=== PATIENT | female | born 1935 | race Two or more races ===

== ENCOUNTER 2022-10-13 01:22 | Inpatient (IN) | payer MEDICARE, OTHER ==
[~2022-10-13] VITALS: Ht 167.6 cm; Wt 60.3 kg
[2022-10-13] MEDS ORDERED: VANCOMYCIN 1 GM in IV D5W 250 ML IV ONE (01:30)
[2022-10-13] MEDS ORDERED: CEFEPIME 1 GM in IV D5W 50 ML IV ONE (01:30)
--- NOTE | 2022-10-13 01:55 | NUR ---
[id number], from [facility] c/o AMS sob 89%on 2lpm via NC is Baseline, upon triage pt on NRB 96%. Pt A/ox1. Connected Pt to Pox and monitor. Safety Measures in place
--- NOTE | 2022-10-13 01:56 | NUR ---
16FR F/C INSERTED; URINE COLLECTED AND SENT TO LAB
--- NOTE | 2022-10-13 01:56 | NUR ---
LFA #20G S/L BLOOD COLLECTED AND SENT TO LAB
--- NOTE | 2022-10-13 01:56 | NUR ---
COVID ANTIGEN SWAB COLLECTED AND SENT TO LAB
[2022-10-13] MEDS ORDERED: CEFEPIME 1 GM VIAL ONE (01:58)
[2022-10-13] MEDS ORDERED: VANCOMYCIN 1 GM VIAL ONE (01:58)
[2022-10-13 02:08] LABS: BASOPHILS % (AUTO) 0.3 % (0.0-2.0); EOSINOPHILS % (AUTO) 0.8 % (0.0-6.0); HEMATOCRIT 29 % (33-45); HEMOGLOBIN 9.2 g/dL (11.5-14.8); LYMPHOCYTES # (AUTO) 1.6 K/uL (0.8-4.8); LYMPHOCYTES % (AUTO) 16.1 % (20.0-44.0); MEAN CORPUSCULAR HGB CONC 31 g/dl (31.0-36.0); MEAN CORPUSCULAR VOLUME 98 fL (82-100); MONOCYTES # (AUTO) 0.7 K/uL (0.1-1.30); MONOCYTES % (AUTO) 7.3 % (2.0-12.0); NEUTROPHILS # (AUTO) 7.6 K/uL (1.8-8.9); NEUTROPHILS % (AUTO) 75.5 % (43.0-81.0); PLATELET COUNT (AUTO) 526 K/uL (150-450); RED BLOOD CELL COUNT(AUTO) 3.01 MIL/uL (4.0-5.2); WHITE BLOOD COUNT (AUTO) 10.1 K/uL (4.3-11.0)
[2022-10-13 02:32] LABS: CALCIUM, SERUM 8.2 mg/dL (8.5-10.1); CARBON DIOXIDE 23 mmol/L (21-32); CHLORIDE 110 mmol/L (98-107); CREATININE 0.9 mg/dL (0.6-1.3); GLUCOSE 122 mg/dL (74-106); POTASSIUM 4.4 mmol/L (3.5-5.1); SODIUM SERUM 143 mmol/L (136-145); UREA NITROGEN, BLOOD 27 mg/dL (7-18)
--- NOTE | 2022-10-13 02:32 | NUR ---
TANK WELDER AT PT'S BEDSIDE
[2022-10-13 02:37] LABS: ALANINE AMINOTRANSFERASE 17 U/L (12-78); ALBUMIN 2.2 g/dL (3.4-5.0); ALKALINE PHOSPHATASE 70 U/L (46-116); ASPARTATE AMINOTRANSFERASE 29 U/L (15-37); BILIRUBIN,DIRECT 0.1 mg/dL (0.0-0.2); BILIRUBIN,TOTAL 0.5 mg/dL (0.2-1.0); TOTAL PROTEIN, SERUM 5.7 g/dL (6.4-8.2)
[2022-10-13 02:37] LABS: BILIRUBIN,URINE NEGATIVE (NEGATIVE); COLOR,URINE YELLOW (YELLOW); LEUKOCYTE ESTERASE ,URINE NEGATIVE (NEGATIVE); NITRITE, URINE NEGATIVE (NEGATIVE); PH,URINE 5.5 (5.0-8.0); PROTEIN,URINE NEGATIVE (NEGATIVE); UGLUCOSE NEGATIVE (NEGATIVE); UROBILINOGEN,URINE 0.2 EU/dL (0.2)
--- NOTE | 2022-10-13 02:57 | NUR ---
TROPONIN 62; DR HUY JON AWARE
[2022-10-13] MEDS ORDERED: ACETAMINOPHEN 325 MG TABLET PO PRN (03:30)
[2022-10-13] MEDS ORDERED: CEFEPIME 1 GM in IV D5W 50 ML IV SCH (03:30)
[2022-10-13] MEDS ORDERED: Z GUARD REMEDY 4 OZ OINT TP PRN (03:30)
[2022-10-13] MEDS ORDERED: ZOLPIDEM TARTRATE 5 MG TABLET PO PRN (03:30)
[2022-10-13] MEDS ORDERED: MAG HYDROX/AL HYDROX/SIMETH 30 ML UDC PO PRN (03:30)
[2022-10-13] MEDS ORDERED: ONDANSETRON HCL/PF 4 MG/2 ML VIAL IVP PRN (03:30)
[2022-10-13] MEDS ORDERED: MAGNESIUM HYDROXIDE 30 ML UDC PO PRN (03:30)
--- NOTE | 2022-10-13 04:00 | NUR ---
room 112-1
[2022-10-13] MEDS ORDERED: IPRA4AER INH (04:20)
[2022-10-13] MEDS ORDERED: ERGO500093 PO (04:20)
[2022-10-13] MEDS ORDERED: CARV3.122 PO (04:20)
[2022-10-13] MEDS ORDERED: IPRA3AMP23 NEB (04:20)
[2022-10-13] MEDS ORDERED: LEVO100T9 MT (04:20)
[2022-10-13] MEDS ORDERED: ATOR20TA PO (04:20)
--- NOTE | 2022-10-13 04:21 | NUR ---
REPORT GIVEN TO SAI DOUGLASS RN FOR THUAN
--- NOTE | 2022-10-13 04:35 | NUR ---
RN NOTES NOTIFIED CHAD CRAWFORD REGARDING LATEST TROPONIN-69, NO NEW ORDER.
--- NOTE | 2022-10-13 04:36 | NUR ---
PT TRANSFERRED TO [facility] VIA ACLS PROTOCOL. VSS. PT TOLERATED TRANSFER WELL
--- NOTE | 2022-10-13 04:40 | NUR ---
ORIENTATION AND MOBILITY INSTRUCTOR NOTES ADMITTED A 86 Y/O FEMALE [facility], WITH DX OF ACUTE RESPIRATORY FAILURE, HX OF AFIB, HTN,HLD, DM, HEMIPLEGIA, DYSPHAGIA, CVA, RIGHT SIDED DEFICIT. ON NASAL CANULA @ 2LPM SATING AT 94%, RESPIRATORY EVEN AND UNLABORED, AFEBRILE. V/S TAKEN AND RECORDED. WITH LEFT FOREARM #20 PERIPHERAL LINE, FLUSHED WITH NS. NO S/S OF INFILTRATION NOTED. BODY ASSESSMENT DONE, PLACED PHOTO ON PATIENT CHART. ALL SAFETY PRECAUTION PROVIDED. BED IN LOWEST POSITION, LOCKED. CALL LIGHT WITH REACH. CONTINUE TO MONITOR.
[2022-10-13 05:03] VITALS: BP 133/70
--- NOTE | 2022-10-13 07:30 | NUR ---
CRYPTOGRAPHY TEACHER OPENING NOTES RECEIVED PATIENT ON BED AWAKE AND A/O X1. ON O2 AT 2LPM VIA NASAL CANNULA TOLERATING WELL. NO SOB NOTED. ON TELE MONITOR CURRENTLY READING SINUS RHYTHM WITH PACs AT 77BPM. WITH ROGERS CATHETER IN PLACED DRAINING BENNETT COLORED URINE. WITH IV ACCESS AT THE LEFT FOREARM G20 SALINE LOCKED PATENT AND INTACT. SAFETY MEASURES IN PLACED. CALL LIGHT WITHIN REACH. BED ON LOWEST LOCKED POSITION, SIDE RAILS UP X2. WILL CONTINUE TO MONITOR.
[2022-10-13 08:00] VITALS: BP 153/56
[2022-10-13] MEDS: LEVOTHYROXINE SODIUM 100 MCG TABLET PO SCH (09:00)
[2022-10-13] MEDS: CARVEDILOL 3.125 MG TABLET PO SCH ×2 (09:00→16:48)
[2022-10-13 09:45] LABS: FERRITIN 95 ng/mL (8-388)
[2022-10-13 09:49] LABS: IRON, SERUM 24 ug/dl (50-175); TOTAL IRON BINDING CAPACITY 193 ug/dl (250-450)
[2022-10-13 12:00] VITALS: BP 149/53
[2022-10-13] MEDS: CEFEPIME 2 GM in IV D5W 100 ML IV SCH (12:37)
[2022-10-13] MEDS: VANCOMYCIN 500 MG in IV D5W 100ml IV SCH (15:22)
[2022-10-13 16:00] VITALS: BP 146/46
--- NOTE | 2022-10-13 18:16 | NUR ---
PICKER TENDER HELPER CLOSING NOTES PATIENT ON BED RESTING AND A/O X1-2. ON O2 AT 2LPM VIA NASAL CANNULA TOLERATING WELL. NO SOB NOTED. ON TELE MONITOR CURRENTLY READING SINUS RHYTHM WITH PACs AT 85BPM. WITH ROGERS CATHETER IN PLACED DRAINING BENNETT COLORED URINE. WITH IV ACCESS AT THE LEFT FOREARM G20 SALINE LOCKED PATENT AND INTACT. DUE MEDS GIVEN. S/P US GUIDED RIGHT THORACENTESIS WITH 2,050ML REDDISH FLUID OUTPUT. NO BLEEDING NOTED. SAFETY MEASURES IN PLACED. CALL LIGHT WITHIN REACH. BED ON LOWEST LOCKED POSITION, SIDE RAILS UP X2. WILL ENDORSE TO NEXT SHIFT FOR THUAN.
--- NOTE | 2022-10-13 19:30 | NUR ---
MANAGER OF CONSTRUCTION OPENING NOTE PATIENT SLEEPING IN BED, EASILY AWAKENED, PT A/O X 1. PT STABLE ON RA, NO S/S OF DISTRESS OR SOB NOTED, BREATHING EVEN AND UNLABORED. PATIENT ON TELE MONITOR READING CONTROLLED A. FIB, HR: 94. IV ACCESS ON LFA #20G INTACT AND SALINE LOCKED. ROGERS CATH IN PLACE AND DRAINING YELLOW URINE. SAFETY MEASURES IN PLACE: CALL LIGHT WITHIN REACH, SIDE RAILS UP X 3, BED LOCKED IN LOWEST POSITION, HOB ELEVATED, BED ALARM ON. WILL CONTINUE TO MONITOR PATIENT
[2022-10-13 20:00] VITALS: BP 125/44
[2022-10-14] VITALS: BP 129/63
[2022-10-14] MEDS: CEFEPIME 2 GM in IV D5W 100 ML IV SCH ×2 (01:15→12:43)
[2022-10-14] MEDS: VANCOMYCIN 500 MG in IV D5W 100ml IV SCH ×2 (02:13→17:20)
[2022-10-14 04:00] VITALS: BP 112/71
[2022-10-14 07:00] LABS: BASOPHILS % (AUTO) 0.2 % (0.0-2.0); EOSINOPHILS % (AUTO) 0.4 % (0.0-6.0); HEMATOCRIT 28 % (33-45); HEMOGLOBIN 8.6 g/dL (11.5-14.8); LYMPHOCYTES # (AUTO) 1.6 K/uL (0.8-4.8); LYMPHOCYTES % (AUTO) 18.1 % (20.0-44.0); MEAN CORPUSCULAR HGB CONC 31 g/dl (31.0-36.0); MEAN CORPUSCULAR VOLUME 99 fL (82-100); MONOCYTES # (AUTO) 0.6 K/uL (0.1-1.30); MONOCYTES % (AUTO) 6.5 % (2.0-12.0); NEUTROPHILS # (AUTO) 6.4 K/uL (1.8-8.9); NEUTROPHILS % (AUTO) 74.8 % (43.0-81.0); PLATELET COUNT (AUTO) 457 K/uL (150-450); RED BLOOD CELL COUNT(AUTO) 2.81 MIL/uL (4.0-5.2); WHITE BLOOD COUNT (AUTO) 8.6 K/uL (4.3-11.0)
[2022-10-14 07:18] LABS: CALCIUM, SERUM 7.7 mg/dL (8.5-10.1); CARBON DIOXIDE 20 mmol/L (21-32); CHLORIDE 110 mmol/L (98-107); CREATININE 0.8 mg/dL (0.6-1.3); GLUCOSE 111 mg/dL (74-106); PHOSPHORUS 3.4 mg/dL (2.5-4.9); POTASSIUM 3.9 mmol/L (3.5-5.1); SODIUM SERUM 141 mmol/L (136-145); UREA NITROGEN, BLOOD 29 mg/dL (7-18)
--- NOTE | 2022-10-14 07:26 | NUR ---
CONTACT AND SERVICE CLERKS SUPERVISOR CLOSING NOTE PATIENT SLEEPING IN BED, PT A/O X 1. PT STABLE ON 2 LPM OF O2 VIA NASAL CANNULA, NO S/S OF DISTRESS OR SOB NOTED, BREATHING EVEN AND UNLABORED. PATIENT ON TELE MONITOR READING CONTROLLED A. FIB, HR: 70. IV ACCESS ON LFA #20G INTACT AND SALINE LOCKED. ROGERS CATH IN PLACE AND DRAINING YELLOW URINE BY GRAVITY. NO SIGNIFICANT CHANGES THIS SHIFT, PT SLEPT WELL THROUGH THE NIGHT, PATIENT TURNED AND REPOSITIONED. SAFETY MEASURES IN PLACE: CALL LIGHT WITHIN REACH, SIDE RAILS UP X 3, BED LOCKED IN LOWEST POSITION, HOB ELEVATED, BED ALARM ON. ENDORSED TO DAYSHIFT RN FOR CONTINUITY OF CARE
[2022-10-14 08:00] VITALS: BP 109/45
--- NOTE | 2022-10-14 08:17 | NUR ---
PAN SHOVER OPENING NOTE PATIENT SLEEPING IN BED, PT A/O X 1. EASILY AROUSABLE. PT STABLE ON 2 LPM OF O2 VIA NASAL CANNULA, NO S/S OF DISTRESS OR SOB NOTED, BREATHING EVEN AND UNLABORED. PATIENT ON TELE MONITOR READING HR 72. IV ACCESS ON LFA #20G INTACT,PATEBT ABD FLUSHING WELL. ROGERS CATH IN PLACE AND DRAINING YELLOW URINE BY GRAVITY. ALL SAFETY MEASURES IN PLACE: CALL LIGHT WITHIN REACH, SIDE RAILS UP X 3, BED LOCKED IN LOWEST POSITION, HOB ELEVATED, BED ALARM ON.
--- NOTE | 2022-10-14 08:19 | NUR ---
WOUND CARE CONSULT: PT PRESENTS WITH SACRAL INTACT DEEP TISSUE INJURY, AREAS OF SKIN DISCOLORATION TO LEFT CHEST/BACK AND SHOULDER, RT HAND SKIN TEAR AND BILATERAL FEET WITH DUSKY COLOR, ALL PRESENT ON ADMISSION. DR HORNE CALLED FOR DPM CONSULT. DISCUSSED WOUND CARE AND SKIN PROTECTION WITH NURSING STAFF. MD IN AGREEMENT WITH PLAN OF CARE. Addendum: 10/14/22 at 0824 by MAYA PAUL WNDNU FIRST STEP LOW AIRLOSS MATTRESS ORDERED. SUE MONTGOMERY NOTED.
[2022-10-14] MEDS: LEVOTHYROXINE SODIUM 100 MCG TABLET PO SCH (11:05)
[2022-10-14] MEDS: CARVEDILOL 3.125 MG TABLET PO SCH ×2 (11:05→18:07)
[2022-10-14 12:00] VITALS: BP 106/48
[2022-10-14] MEDS ORDERED: ACET-2605 PO (13:58)
[2022-10-14] MEDS ORDERED: ASCO-352 PO (13:58)
[2022-10-14] MEDS ORDERED: CLOP75TA15 PO (13:58)
[2022-10-14] MEDS ORDERED: ASPI-1169 PO (13:58)
[2022-10-14] MEDS ORDERED: MULT-447 PO (13:58)
[2022-10-14] MEDS ORDERED: ACET-868 PO (13:58)
[2022-10-14] MEDS ORDERED: FURO-145 PO (13:58)
[2022-10-14] MEDS ORDERED: IPRA3AMP23 IH (13:58)
[2022-10-14] MEDS ORDERED: LEVO100T9 PO (14:30)
[2022-10-14 16:00] VITALS: BP 109/36
--- NOTE | 2022-10-14 19:56 | NUR ---
EDUCATIONAL GUIDANCE COUNSELOR CLOSING NOTE PATIENT SLEEPING IN BED, PT A/O X 1. EASILY AROUSABLE. PT STABLE ON 2 LPM OF O2 VIA NASAL CANNULA ABOVE 92%. NO S/S OF DISTRESS OR SOB NOTED AT THIS TIME, BREATHING EVEN AND UNLABORED. PATIENT ON TELE MONITOR READING SINUS RHYTM. IV ACCESS ON LFA #20G INTACT,PATENT ABD FLUSHING WELL. ROGERS CATH IN PLACE AND DRAINING YELLOW URINE BY GRAVITY. ALL SAFETY MEASURES IN PLACE: CALL LIGHT WITHIN REACH, SIDE RAILS UP X 3, BED LOCKED IN LOWEST POSITION, HOB ELEVATED, BED ALARM ON. ENDORSED TO FLOOR WAXER RN FOR CONTUITY OF CARE
[2022-10-14 20:00] VITALS: BP 162/75
[2022-10-14] MEDS: MUPIROCIN OINT 2% 22 GM TUBE NS SCH (20:08)
--- NOTE | 2022-10-14 20:54 | NUR ---
RN OPENING NOTE PATIENT AWAKE IN BED. A/OX0, OBTUNDED. NO S/S OF DISTRESS, BREATHING WITHOUT DIFFICULTY ON 2L NC. LFA #20 SL INTACT AND PATENT. TELE READS SR 77 W/ BBB. SAFETY MEASURES IN PLACE: BED LOCKED AND AT LOWEST POSITION, RAILS UP X2, CALL KILPATRICK WITHIN REACH. BED ALARM ON. WILL CONTINUE TO MONITOR PATIENT.
[2022-10-15] VITALS: BP 139/70
[2022-10-15] MEDS: CEFEPIME 2 GM in IV D5W 100 ML IV SCH ×2 (00:42→13:26)
[2022-10-15] MEDS: VANCOMYCIN 500 MG in IV D5W 100ml IV SCH ×2 (02:12→14:13)
[2022-10-15 04:00] VITALS: BP 140/72
[2022-10-15] MEDS: MUPIROCIN OINT 2% 22 GM TUBE NS SCH ×2 (04:46→17:27)
--- NOTE | 2022-10-15 06:32 | NUR ---
RN CLOSING NOTE PATIENT ASLEEP IN BED. A/OX0, OBTUNDED. NO S/S OF DISTRESS, BREATHING WITHOUT DIFFICULTY ON 2L NC. KESHA #22 SL INTACT AND PATENT. TELE READS SR 81 W/ BBB. SAFETY MEASURES IN PLACE: BED LOCKED AND AT LOWEST POSITION, RAILS UP X2, CALL KILPATRICK WITHIN REACH, BED ALARM ON. WILL ENDORSE TO NEXT SHIFT FOR THUAN.
--- NOTE | 2022-10-15 07:25 | NUR ---
HOSPITAL RECEPTIONIST OPENING NOTE PATIENT SLEEPING IN BED, PT A/O X 1. EASILY AROUSABLE. PT STABLE ON 2 LPM OF O2 VIA NASAL CANNULA ABOVE 92%. NO S/S OF DISTRESS OR SOB NOTED AT THIS TIME, BREATHING EVEN AND UNLABORED. PATIENT ON TELE MONITOR READING SINUS RHYTM. IV ACCESS ON R UPPER ARM #22G INTACT,PATENT ABD FLUSHING WELL. ROGERS CATH IN PLACE AND DRAINING YELLOW URINE BY GRAVITY. ALL SAFETY MEASURES IN PLACE: CALL LIGHT WITHIN REACH, SIDE RAILS UP X 3, BED LOCKED IN LOWEST POSITION, HOB ELEVATED, BED ALARM ON.
[2022-10-15 08:00] VITALS: BP 127/52
[2022-10-15] MEDS: LEVOTHYROXINE SODIUM 100 MCG TABLET PO SCH (09:53)
[2022-10-15] MEDS: CARVEDILOL 3.125 MG TABLET PO SCH ×2 (09:54→17:27)
[2022-10-15 12:00] VITALS: BP 128/61
[2022-10-15] MEDS: GLUCERNA SHAKE 237 ML CAN PO SCH ×2 (12:00→17:27)
[2022-10-15] MEDS: PROSOURCE / PROSTAT (PYXIS) 30 ML UDC GT SCH ×2 (13:00→17:00)
[2022-10-15] MEDS ORDERED: Medication Not On Formulary EA (Ipratropium/Albuterol Sulfate (Duoneb 2.5-0.5 Mg/3 Ml So NEB SCH (13:00)
[2022-10-15] MEDS: ASCORBIC ACID 500 MG TABLET PO SCH (13:25)
[2022-10-15] MEDS: MULTIVIT W/MINERALS 1 TAB TABLET PO SCH (13:26)
--- NOTE | 2022-10-15 14:04 | NUR ---
RN NOTE NOTIFIED PITCH FILLER RAYRAY THAT PT HAS MILD COUGHING AFTER EATING. ORDERED SWALLOW EVAL
[2022-10-15 14:07] LABS: CALCIUM, SERUM 7.8 mg/dL (8.5-10.1); CREATININE 0.9 mg/dL (0.6-1.3); POTASSIUM 3.8 mmol/L (3.5-5.1)
[2022-10-15 14:13] LABS: ALBUMIN 1.8 g/dL (3.4-5.0); BILIRUBIN,TOTAL 0.5 mg/dL (0.2-1.0); TOTAL PROTEIN, SERUM 4.9 g/dL (6.4-8.2)
--- NOTE | 2022-10-15 14:30 | NUR ---
rn note notified corporate director of human resources bjorn of bruises of upper body, corporate director of human resources bjorn aware.old bruises from previous time
[2022-10-15 16:00] VITALS: BP 121/45
[2022-10-15] MEDS: SOD FERRIC GLUC 125 MG in IV NS 0.9% 100 ML IV SCH (16:05)
--- NOTE | 2022-10-15 19:21 | NUR ---
EMERGENCY VEHICLE DISPATCHER CLOSING NOTE PT A/O X 1. EASILY AROUSABLE. PT STABLE ON 2 LPM OF O2 VIA NASAL CANNULA ABOVE 92%. NO S/S OF DISTRESS OR SOB NOTED AT THIS TIME, BREATHING EVEN AND UNLABORED. PATIENT ON TELE MONITOR READING SINUS RHYTM 88. IV ACCESS ON LFA #20G INTACT and R 22 GAUGE.,PATENT AND FLUSHING WELL. ROGERS CATH IN PLACE AND DRAINING YELLOW URINE BY GRAVITY. HOB ELEVATED AT ALL TIMES. ALL SAFETY MEASURES IN PLACE: CALL LIGHT WITHIN REACH, SIDE RAILS UP X 3, BED LOCKED IN LOWEST POSITION, HOB ELEVATED, BED ALARM ON. ENDORSED TO LIFE INSURANCE SALES AGENT RN FOR CONTUITY OF CARE
[2022-10-15] MEDS: ALBUTEROL FS 2.5 MG/0.5 ML VIAL.NEB NEB SCH (19:51)
[2022-10-15] MEDS: IPRATROPIUM NEB FS 0.5 MG/2.5 ML AMPUL.NEB NEB SCH (19:51)
[2022-10-15 20:00] VITALS: BP 139/73
[2022-10-15] MEDS ORDERED: ATORVASTATIN 10 MG TABLET PO SCH (22:00)
[2022-10-16] VITALS: BP 140/61
[2022-10-16] MEDS: ALBUTEROL FS 2.5 MG/0.5 ML VIAL.NEB NEB SCH ×3 (00:49→14:14)
[2022-10-16] MEDS: IPRATROPIUM NEB FS 0.5 MG/2.5 ML AMPUL.NEB NEB SCH ×3 (00:49→14:14)
[2022-10-16] MEDS: CEFEPIME 2 GM in IV D5W 100 ML IV SCH (01:41)
[2022-10-16] MEDS: VANCOMYCIN 500 MG in IV D5W 100ml IV SCH (02:15)
[2022-10-16 04:00] VITALS: BP 128/63
[2022-10-16] MEDS: MUPIROCIN OINT 2% 22 GM TUBE NS SCH (05:09)
[2022-10-16 06:28] LABS: BASOPHILS % (AUTO) 0.3 % (0.0-2.0); HEMATOCRIT 26 % (33-45); HEMOGLOBIN 7.9 g/dL (11.5-14.8); LYMPHOCYTES # (AUTO) 1.8 K/uL (0.8-4.8); LYMPHOCYTES % (AUTO) 14.8 % (20.0-44.0); MEAN CORPUSCULAR HGB CONC 31 g/dl (31.0-36.0); MEAN CORPUSCULAR VOLUME 98 fL (82-100); MONOCYTES # (AUTO) 0.8 K/uL (0.1-1.30); MONOCYTES % (AUTO) 6.9 % (2.0-12.0); NEUTROPHILS # (AUTO) 9.3 K/uL (1.8-8.9); PLATELET COUNT (AUTO) 467 K/uL (150-450); RED BLOOD CELL COUNT(AUTO) 2.62 MIL/uL (4.0-5.2); WHITE BLOOD COUNT (AUTO) 12.1 K/uL (4.3-11.0)
[2022-10-16 06:58] LABS: CALCIUM, SERUM 7.8 mg/dL (8.5-10.1); CREATININE 0.8 mg/dL (0.6-1.3); MAGNESIUM 2.3 mg/dL (1.8-2.4); PHOSPHORUS 2.9 mg/dL (2.5-4.9); POTASSIUM 3.7 mmol/L (3.5-5.1)
[2022-10-16 07:00] VITALS: BP_SYST 131; BP_SYST 139; BP_DIAS 57; BP_DIAS 68
--- NOTE | 2022-10-16 07:00 | NUR ---
REGULATORY MANAGER OPENING NOTE PT A/O X 1. EASILY AROUSABLE. PATIENT ON 2 LPM OF O2 VIA NASAL CANNULA.WITH 100% 02 SATURATION. NO S/S OF DISTRESS OR SOB NOTED, BREATHING EVEN AND UNLABORED. IV ACCESS ON LFA #20G INTACT and RIGHT UPPER ARM 22 GAUGE SL. PATENT AND FLUSHING WELL. ROGERS CATH IN PLACE AND DRAINING YELLOW URINE BY GRAVITY. HOB ELEVATED AT ALL TIMES. ALL SAFETY MEASURES IN PLACE: CALL LIGHT WITHIN REACH, SIDE RAILS UP X 3, BED LOCKED IN LOWEST POSITION, HOB ELEVATED, BED ALARM ON. WILL CONTINUE TO MONITOR.
--- NOTE | 2022-10-16 07:26 | NUR ---
noc rn closing patient in bed a/ox1. no s/s of apparent distress in 2lpm of 02 via nc. denies pain. no fluids running at this time. reading SR this am. keys draining via gravity. all needs attended. all scheduled medications administered. endorsed to SAI John for continuity of care.
[2022-10-16] MEDS ORDERED: LEVOTHYROXINE SODIUM 100 MCG TABLET PO SCH (07:30)
[2022-10-16 08:12] VITALS: BP 139/68
[2022-10-16] MEDS: MULTIVIT W/MINERALS 1 TAB TABLET PO SCH (08:12)
[2022-10-16] MEDS: ASCORBIC ACID 500 MG TABLET PO SCH (08:12)
[2022-10-16] MEDS: CARVEDILOL 3.125 MG TABLET PO SCH (08:12)
--- NOTE | 2022-10-16 08:25 | NUR ---
RN NOTE SPOKE TO THERAPIST PHYSICAL, NO THORACENTESIS OR PROCEDURES PENDING.
[2022-10-16] MEDS: GLUCERNA SHAKE 237 ML CAN PO SCH ×2 (08:28→13:07)
[2022-10-16] MEDS ORDERED: CLOPIDOGREL BISULFATE 75 MG TABLET PO SCH (09:00)
[2022-10-16] MEDS: PROSOURCE / PROSTAT (PYXIS) 30 ML UDC GT SCH ×2 (09:52→13:46)
[2022-10-16] MEDS: LEVOTHYROXINE SODIUM 100 MCG TABLET PO SCH (09:53)
[2022-10-16 13:53] LABS: EOSINOPHILS % (MANUAL) 3 % (0-4); LYMPHOCYTES % (MANUAL) 10 % (16-48); METAMYELOCYTES % 2 % (0-0); MONOCYTES % (MANUAL) 3 % (0-11.0); MYELOCYTES % 1 % (0-0); NEUTROPHILS % (MANUAL) 81 (42-76)
[2022-10-16] MEDS: SOD FERRIC GLUC 125 MG in IV NS 0.9% 100 ML IV SCH (14:23)
--- NOTE | 2022-10-16 14:55 | NUR ---
RN NOTE ERIE WAS CALLED TO GIVE REPORT. SPOKE TO VEE AND MADE AWARE THAT PATIENT WILL BE PICKED UP AROUND 1600. PATIENT'S BROTHER, JEREMIAS TIDWELL WAS ALSO CALLED REGARDING THE PATIENTS DISCHARGE, BROTHER STATED UNDERSTANDINGS.
--- NOTE | 2022-10-16 16:57 | NUR ---
RN NOTE PATIENT WAS DISCHARGE TO ASSISTED LIVING FACILITY IN STABLE CONDITION, ALERT AND ORIENTED X1. O2 SATURATION AT 98%. NO SOB OR ACUTE DISTRESS NOTED. IV ACCESS REMOVED, NO BLEEDING NOTES, DRESSING INTACT, PICTURES TAKEN, ALL FORMS SIGNED ALONG WITH DISCHARGE PAPERS AND BELONGING. PATIENT LEFT IN STABLE CONDITION WITH TWO NURSING ASSISTANTS TEACHER VIA AMBULANCE
[2022-10-17] MEDS ORDERED: ERGOCALCIFEROL (VITAMIN D 2) 50,000 UNIT CAPSULE PO SCH (09:00)
== END 2022-10-16 16:55 | DRG 843 ==
LOC: ER 01:25 → TELE1 04:02
PROVIDERS: ADMIT Nurse Practitioner Acute Care; ATTEND Nurse Practitioner Acute Care
PROC: 0W993ZX Drainage of Right Pleural Cavity, Percutaneous Approach, Diagnostic (ICD-10-PCS; principal; 2022-10-13)
DX: C80.1 Malignant (primary) neoplasm, unspecified (principal); I21.A1 Myocardial infarction type 2; J96.21 Acute and chronic respiratory failure with hypoxia; N17.0 Acute kidney failure with tubular necrosis; J98.11 Atelectasis; J94.2 Hemothorax; J91.0 Malignant pleural effusion; F09 Unspecified mental disorder due to known physiological condition; D64.9 Anemia, unspecified; E03.9 Hypothyroidism, unspecified; E11.9 Type 2 diabetes mellitus without complications; E78.5 Hyperlipidemia, unspecified; F03.90 Unspecified dementia, unspecified severity, without behavioral disturbance, psychotic disturbance, mood disturbance, and anxiety; I10 Essential (primary) hypertension; K76.89 Other specified diseases of liver; R13.10 Dysphagia, unspecified; Z20.822 Contact with and (suspected) exposure to COVID-19
CPT/HCPCS: 36415; 71045-TC; 71250-TC; 80048-TC; 80053-TC; 80076-TC; 80202-TC; 82728-TC; 82962-TC; 83540-TC; 83605-TC; 83615-TC; 83735-TC; 84100-TC; 84484-TC; 85025-TC; 85730-TC; 87040-TC; 87081-TC; 87086-TC; 89051-TC; 92526; 92611-TC; 93307-TC; A4223; C9803; G0378; J0692; J2916; J3370; J7030; J7050; J7060

== ENCOUNTER 2022-10-20 19:30 | Inpatient (IN) | payer MEDICARE, OTHER ==
[~2022-10-20] VITALS: Ht 152.4 cm; Wt 58.5 kg
[~2022-10-20 19:30] MED LIST: ASCO-352 PO; ASPI-1169 PO; ATOR20TA PO; CARV3.122 PO; CLOP75TA15 PO; ERGO500093 PO; FURO-145 PO; IPRA3AMP23 IH; IPRA3AMP23 NEB; LEVO100T9 PO; MULT-447 PO
--- NOTE | 2022-10-20 19:38 | NUR ---
RAVIN 108 FROM A CARE FACILITY FOR LOW O2 SAT. SATTING 98% ON NRB 15LPM. PT A/OX0; NONVERBAL. CONNECTED PT TO POX AND MONITOR. SAFETY MEASURES IN PLACE
--- NOTE | 2022-10-20 19:50 | NUR ---
RAC #20G S/L & LFA #20G S/L BLOOD COLLECTED AND SENT TO LAB
--- NOTE | 2022-10-20 19:53 | NUR ---
COVID ANTIGEN SWAB COLLECTED AND SENT TO LAB
[2022-10-20] MEDS ORDERED: CEFEPIME 1 GM VIAL ONE (19:54)
[2022-10-20] MEDS ORDERED: VANCOMYCIN 1 GM /D5W 250 ML PB IV ONE (19:54)
[2022-10-20] MEDS ORDERED: VANCOMYCIN 1 GM in IV D5W 250 ML IV ONE (20:00)
[2022-10-20] MEDS ORDERED: CEFEPIME 1 GM in IV D5W 50 ML IV ONE (20:00)
--- NOTE | 2022-10-20 20:10 | NUR ---
16FR F/C INSERTED; URINE COLLECTED AND SENT TO LAB
[2022-10-20 20:31] LABS: BASOPHILS # (AUTO) 0.1 K/uL (0.0-0.2); BASOPHILS % (AUTO) 0.3 % (0.0-2.0); EOSINOPHILS % (AUTO) 0.8 % (0.0-6.0); HEMATOCRIT 28 % (33-45); HEMOGLOBIN 8.4 g/dL (11.5-14.8); LYMPHOCYTES # (AUTO) 2.4 K/uL (0.8-4.8); LYMPHOCYTES % (AUTO) 12.7 % (20.0-44.0); MEAN CORPUSCULAR HGB CONC 30 g/dl (31.0-36.0); MEAN CORPUSCULAR VOLUME 101 fL (82-100); MONOCYTES # (AUTO) 0.5 K/uL (0.1-1.30); MONOCYTES % (AUTO) 2.5 % (2.0-12.0); NEUTROPHILS # (AUTO) 15.9 K/uL (1.8-8.9); NEUTROPHILS % (AUTO) 83.7 % (43.0-81.0); PLATELET COUNT (AUTO) 587 K/uL (150-450); WHITE BLOOD COUNT (AUTO) 19.1 K/uL (4.3-11.0)
[2022-10-20] MEDS ORDERED: IV NS 0.9% 1,000 ML BAG IV ONE (21:00)
[2022-10-20 21:27] LABS: CALCIUM, SERUM 8.3 mg/dL (8.5-10.1); CARBON DIOXIDE 21 mmol/L (21-32); CHLORIDE 112 mmol/L (98-107); CREATININE 1.3 mg/dL (0.6-1.3); GLUCOSE 180 mg/dL (74-106); POTASSIUM 4.1 mmol/L (3.5-5.1); SODIUM SERUM 145 mmol/L (136-145); UREA NITROGEN, BLOOD 32 mg/dL (7-18)
[2022-10-20 21:36] LABS: BILIRUBIN,URINE NEGATIVE (NEGATIVE); COLOR,URINE YELLOW (YELLOW); LEUKOCYTE ESTERASE ,URINE NEGATIVE (NEGATIVE); NITRITE, URINE NEGATIVE (NEGATIVE); PH,URINE 5.5 (5.0-8.0); PROTEIN,URINE TRACE mg/dl (NEGATIVE); UGLUCOSE NEGATIVE (NEGATIVE); UROBILINOGEN,URINE 0.2 EU/dL (0.2)
[2022-10-20 21:40] LABS: ALANINE AMINOTRANSFERASE 18 U/L (12-78); ALBUMIN 2.2 g/dL (3.4-5.0); ASPARTATE AMINOTRANSFERASE 35 U/L (15-37); BILIRUBIN,DIRECT 0.1 mg/dL (0.0-0.2); BILIRUBIN,TOTAL 0.3 mg/dL (0.2-1.0); TOTAL PROTEIN, SERUM 5.5 g/dL (6.4-8.2)
[2022-10-20 21:45] LABS: BACTERIA,URINE RARE /HPF (None Seen); MUCUS,URINE Few /LPF (None Seen); WBC,URINE 0-2 /HPF (0-3)
[2022-10-20 21:53] LABS: ALKALINE PHOSPHATASE 99 U/L (46-116)
[2022-10-20 22:19] LABS: BAND % (MANUAL) 4 % (0.0-5.0); EOSINOPHILS % (MANUAL) 1 % (0-4); LYMPHOCYTES % (MANUAL) 10 % (16-48); MONOCYTES % (MANUAL) 4 % (0-11.0); NEUTROPHILS % (MANUAL) 81 (42-76)
--- NOTE | 2022-10-20 22:50 | NUR ---
MRSA COLLECTED AND SENT TO LAB
[2022-10-21] MEDS ORDERED: MAG HYDROX/AL HYDROX/SIMETH 30 ML UDC PO PRN
[2022-10-21] MEDS ORDERED: ONDANSETRON HCL/PF 4 MG/2 ML VIAL IVP PRN
[2022-10-21] MEDS ORDERED: HYDROCODONE/APAP 5/325MG TABLET PO PRN
[2022-10-21] MEDS ORDERED: ZOLPIDEM TARTRATE 5 MG TABLET PO PRN
[2022-10-21] MEDS ORDERED: Z GUARD REMEDY 4 OZ OINT TP PRN
--- NOTE | 2022-10-21 00:10 | NUR ---
REPORT GIVEN TO MARTÍN DOUGLASS RN FOR THUAN
--- NOTE | 2022-10-21 00:52 | NUR ---
PATIENT TRANSFERRED TO [facility] VIA ACLS
[2022-10-21] MEDS ORDERED: Medication Not On Formulary EA (Ipratropium/Albuterol Sulfate (Duoneb 2.5-0.5 Mg/3 Ml So IH PRN (01:00)
[2022-10-21 01:40] VITALS: BP 111/54
--- NOTE | 2022-10-21 01:40 | NUR ---
ADMISSION NOTES, RECEIVED PATIENT FROM ER DEPARTMENT VIA GURNEY ACCOMPANIED BY 2 NURSES, PATIENT A/O X0, NONVERBAL, UNABLE TO LET NEEDS KNOWN, ON SIMPLE MASK AT 8L, WITH O2 LOW 90S, HIGH 80S, PLACED PATIENT ON NRM AT 15LPM, WITH O2 99% AT THIS TIME, DEEP BREATHING EFFORT USING ACCESSORY MUSCLES, ATTACHED TO TELE MONITOR AND SHOWED SINUS TACHY LOW 100S, UNDER MEDICAL SERVICES DR OREILLY WITH ADMITTING DX RESPIRATORY FAILURE, SKIN COOL AND PALE WITH BILATERAL FOOT TOES CYANOTIC, GENERALIZED EDMA, ESPECIALLY BLE, UNABLE TO ASSESS SACRUM AREA T THIS TIME, PT UNABLE TO TOLERATED, WILL ASSESS LATER, KEPT PATIENT DRY, CLEAN AND WARM, WILL CONTINUE TO MONITOR CLOSELY.
[2022-10-21] MEDS ORDERED: ALBUTEROL FS 2.5 MG/0.5 ML VIAL.NEB NEB PRN (02:00)
[2022-10-21] MEDS ORDERED: IPRATROPIUM NEB FS 0.5 MG/2.5 ML AMPUL.NEB IH PRN (02:00)
--- NOTE | 2022-10-21 02:00 | NUR ---
DENILSON AWARE THAT PATIENT'S TROPONIN IS TRENDING UP LAST ONE 928, AND PER NO NEW ORDER.
--- NOTE | 2022-10-21 03:45 | NUR ---
0345 Spoke with patient's brother Niall Addison to witness patient's code status and he stated patient is DNR/DNI. Dr Romano made aware.
[2022-10-21 04:00] VITALS: BP 114/66
--- NOTE | 2022-10-21 06:39 | NUR ---
END OF SHIFT, PATIENT CONTINUE ON NRM AT 15LPM, BROTHER AT BEDSIDE, VITAL SINGS STABLE, O2 >96%, IV SITES PATENT AND INTACT, PER BROTHER PATIENT DNR/DNI, VERY EDEMATOUS, WILL BE ON LASIX IVP, PATIENT STRICTLY NPO, HIGH RISK FOR ASPIRATION, SUCTION NEEDED, ALL NEEDS PROVIDED, CALL LIGHT W/I REACH, WILL ENDORSE CONTINUITY OF CARE TO ONCOMING NURSE.
[2022-10-21 07:30] LABS: BASOPHILS % (AUTO) 0.2 % (0.0-2.0); HEMATOCRIT 29 % (33-45); HEMOGLOBIN 8.7 g/dL (11.5-14.8); LYMPHOCYTES # (AUTO) 1.1 K/uL (0.8-4.8); LYMPHOCYTES % (AUTO) 8.6 % (20.0-44.0); MEAN CORPUSCULAR HGB CONC 30 g/dl (31.0-36.0); MEAN CORPUSCULAR VOLUME 101 fL (82-100); MONOCYTES # (AUTO) 0.6 K/uL (0.1-1.30); MONOCYTES % (AUTO) 4.3 % (2.0-12.0); NEUTROPHILS # (AUTO) 11.4 K/uL (1.8-8.9); NEUTROPHILS % (AUTO) 86.9 % (43.0-81.0); PLATELET COUNT (AUTO) 454 K/uL (150-450); RED BLOOD CELL COUNT(AUTO) 2.84 MIL/uL (4.0-5.2); WHITE BLOOD COUNT (AUTO) 13.1 K/uL (4.3-11.0)
[2022-10-21] MEDS: LEVOTHYROXINE SODIUM 100 MCG TABLET PO SCH (07:30)
[2022-10-21] MEDS ORDERED: PANTOPRAZOLE 40 MG TABLET.DR PO SCH (07:30)
--- NOTE | 2022-10-21 07:36 | NUR ---
[facility] RN NOTE PATIENT IN BED NONVERBAL , BOTH EYES OPEN , ON 15L NRB , SATURATION 95% AT THIS TIME, OB DNR\DNI CODE STATUS, RT AC HL INTACT, WITH EDEMA BOTH LEGS AND ARMS KEEP ELEVATED TOLERATED, BROTHER AT BEDSIDE ALL NEEDS ATTENDED BED IN LOWEST AND LOCKED POSITION, ON NPO STATUS AT THIS TIME WILL CON TO MONITOR CLOSELY Addendum: 10/21/22 at 1637 by BAKARI THURSTON RN lt eye is open correction
[2022-10-21] MEDS: ALBUTEROL FS 2.5 MG/0.5 ML VIAL.NEB NEB SCH ×3 (07:52→19:50)
[2022-10-21] MEDS: IPRATROPIUM NEB FS 0.5 MG/2.5 ML AMPUL.NEB IH SCH ×3 (07:52→19:51)
--- NOTE | 2022-10-21 07:54 | NUR ---
PANTOGRAPH II ENGRAVER NOTE CHEST X CHIVO DONE , ON BREATHING TX BY RT
[2022-10-21 08:00] VITALS: BP 110/69
[2022-10-21 08:05] LABS: CALCIUM, SERUM 8.4 mg/dL (8.5-10.1); CREATININE 1.1 mg/dL (0.6-1.3); MAGNESIUM 2.1 mg/dL (1.8-2.4); PHOSPHORUS 4.4 mg/dL (2.5-4.9); POTASSIUM 4.3 mmol/L (3.5-5.1)
[2022-10-21] MEDS: PANTOPRAZOLE 40 MG VIAL IV SCH (08:08)
[2022-10-21] MEDS: ASPIRIN 81 MG TAB.CHEW PO SCH (08:16)
[2022-10-21] MEDS: CARVEDILOL 3.125 MG TABLET PO SCH ×2 (08:16→21:00)
[2022-10-21] MEDS: MULTIVIT W/MINERALS 1 TAB TABLET PO SCH (08:16)
[2022-10-21] MEDS: ASCORBIC ACID 500 MG TABLET PO SCH (08:17)
[2022-10-21] MEDS ORDERED: Medication Not On Formulary EA (Ipratropium/Albuterol Sulfate (Duoneb 2.5-0.5 Mg/3 Ml So NEB SCH (09:00)
[2022-10-21] MEDS ORDERED: CLOPIDOGREL BISULFATE 75 MG TABLET PO SCH (09:00)
[2022-10-21] MEDS ORDERED: FUROSEMIDE 20 MG/2 ML VIAL IV SCH (09:00)
[2022-10-21] MEDS ORDERED: ASPIRIN 81 MG TAB.CHEW PO SCH (09:00)
[2022-10-21] MEDS ORDERED: FUROSEMIDE 20 MG TABLET PO SCH (09:00)
[2022-10-21 09:39] LABS: THYROID STIMULATING HORMONE 24.292 uIU/mL (0.358-3.74)
[2022-10-21] MEDS: CEFEPIME 2 GM in IV D5W 100 ML IV SCH (09:56)
--- NOTE | 2022-10-21 10:00 | NUR ---
telephone operator note st at bedside , patient failed swallow eval
--- NOTE | 2022-10-21 11:00 | NUR ---
INTEGRATED CIRCUIT IC LAYOUT DESIGNER NOTE SAI DOUGLAS MADE ROUNDS , UPDATED PATENT CONDITION AWARE THAT PATIENT FAILED SWALLOW EVAL AND PER DR FLOWERS ORDERED MORPHINE FOR PAIN AND COMFORT, PATIENT DNR\DNI STATUS Addendum: 10/21/22 at 1156 by BAKARI THURSTON RN 1100 STELLA GIBBS NP AWARE THAT TROPONIN 883, YESTERDAY WAS 928
--- NOTE | 2022-10-21 11:13 | NUR ---
telephone information clerk note dr donovan at bedside notified that patient on NONREBREATHER MASK saturation 95% at this time also aware that failed swallow eval
[2022-10-21] MEDS ORDERED: BISA10SU11 RC (11:52)
[2022-10-21] MEDS ORDERED: ACET-2605 PO (11:52)
[2022-10-21] MEDS ORDERED: FERR325T24 PO (11:52)
[2022-10-21] MEDS ORDERED: NA P133E RC (11:52)
[2022-10-21] MEDS ORDERED: AMIN30LI2 PO (11:52)
[2022-10-21] MEDS ORDERED: MAGN400O6 PO (11:52)
[2022-10-21] MEDS ORDERED: ACET-868 PO (11:52)
[2022-10-21] MEDS ORDERED: CHOL100043 PO (11:52)
[2022-10-21 12:00] VITALS: BP 142/91
--- NOTE | 2022-10-21 13:40 | NUR ---
television script writer note rounds made ,all needs attended , cont on nrn 15l, on dnr\dni code status, keep clean dry
[2022-10-21] MEDS: MORPHINE SULFATE INJ 4 MG/ML DISP.SYRIN IV PRN ×2 (13:59→18:05)
--- NOTE | 2022-10-21 14:04 | NUR ---
director telecommunications note noted patient more restless and labored breathing bp142/78 saturation 98% on breathing tx and morphine 2 mg ivp given as ordered , family at bedside ,all needs attended
--- NOTE | 2022-10-21 14:17 | NUR ---
television production clerk note patient brother devan at bedside refused to do dopple study both legs patient still dnr\dni code status, he is next of terese decision making for patient , patient right respected Addendum: 10/21/22 at 1600 by BAKARI THURSTON RN mouth care done all needs attended
[2022-10-21] MEDS ORDERED: NA PHOS,M-B/NA PHOS,DI-BA 1 EA ENEMA RC PRN (14:30)
[2022-10-21] MEDS ORDERED: ACETAMINOPHEN ES 500 MG TABLET PO PRN (14:30)
[2022-10-21] MEDS ORDERED: BISACODYL SUPP (10 MG) 10 MG/SUPP.RECT SUPP.RECT RC PRN (14:30)
[2022-10-21] MEDS ORDERED: ACETAMINOPHEN 325 MG TABLET PO PRN ×2 (14:30)
[2022-10-21] MEDS ORDERED: MAGNESIUM HYDROXIDE 30 ML UDC PO PRN ×2 (14:30)
[2022-10-21 15:53] LABS: BAND % (MANUAL) 2 % (0.0-5.0); LYMPHOCYTES % (MANUAL) 7 % (16-48); MONOCYTES % (MANUAL) 1 % (0-11.0); NEUTROPHILS % (MANUAL) 90 (42-76)
[2022-10-21 16:06] VITALS: BP 92/31
[2022-10-21] MEDS: PROSTAT (PYXIS) 30 ML UDC PO SCH (16:09)
--- NOTE | 2022-10-21 17:53 | NUR ---
telephone lines repairer note turn reposition, keep clean dry , on o2 as ordered , will monitor
--- NOTE | 2022-10-21 18:08 | NUR ---
telephone diaphragm assembler note become restless bp114/45 saturation 95% hr 102 morphine 2 mg iv p given as ordered
--- NOTE | 2022-10-21 18:47 | NUR ---
telephoner note patient in bed alert oriented x2 , on nonrebreather mask 15 l saturation 95% with Anderson cath to gravity with yellow color urine, lr fa hl intact and flushed well , will cont to monitor ,bed in lowest and locked position , respiration unlabored at this time, will cont to monitor closely
--- NOTE | 2022-10-21 19:45 | NUR ---
GROUP ART SUPERVISOR OPENING NOTES RECEIVED PATIENT IN BED, AWAKE, OBTUNDED. NEPHEW AT BEDSIDE, AFEBRILE AND NOT IN ANY FORM OF ACUTE DISTRESS. BREATHING EVEN AND NON LABORED ON NRB AT 15LPM. ON TELE MONITORING WITH CURRENT READING OF SR-ST AT 100. WITH IV ACCESS ON LFA 20G-SL. SAFETY MEASURES IN PLACE. KEPT BED IN LOCKED AND LOW POSITION. SIDE RAILS UP X2. COMFORT MEASURES PROVIDED, NOTED PT BP AT 88/32, NOTIFIED FLIGHT ATTENDANT MD, ORDERED 250 CC NS BOLUS, ORDER TAKEN AND CARRIED OUT, WILL CONT TO MONITOR THROUGHOUT THE SHIFT.
[2022-10-21] MEDS ORDERED: IV NS 0.9% 250 ML IV ONE (20:30)
[2022-10-21] MEDS: VANCOMYCIN HCL 0.75 GM in IV D5W 250 ML IV SCH (20:34)
[2022-10-21] MEDS ORDERED: ATORVASTATIN 10 MG TABLET PO SCH (22:00)
--- NOTE | 2022-10-21 23:25 | NUR ---
RT NOTE FIO2 TITRATED TO SIMPLE MASK @ 10 LPM. PT TOLERATING WELL. SPO2 @ 99%. WILL CONTINUE TO MONITOR CLOSELY. SAI HOROWITZ NOTIFIED.
[2022-10-22] MEDS: CEFEPIME 2 GM in IV D5W 100 ML IV SCH ×3 (00:03→21:43)
[2022-10-22] MEDS: IPRATROPIUM NEB FS 0.5 MG/2.5 ML AMPUL.NEB IH SCH ×4 (02:13→19:54)
[2022-10-22] MEDS: ALBUTEROL FS 2.5 MG/0.5 ML VIAL.NEB NEB SCH ×4 (02:13→19:54)
[2022-10-22 04:44] VITALS: BP 98/57
[2022-10-22] MEDS: MORPHINE SULFATE INJ 4 MG/ML DISP.SYRIN IV PRN (06:19)
[2022-10-22 06:39] LABS: HEMATOCRIT 25 % (33-45); HEMOGLOBIN 7.5 g/dL (11.5-14.8); LYMPHOCYTES # (AUTO) 1.9 K/uL (0.8-4.8); LYMPHOCYTES % (AUTO) 8.5 % (20.0-44.0); MEAN CORPUSCULAR HGB CONC 30 g/dl (31.0-36.0); MEAN CORPUSCULAR VOLUME 102 fL (82-100); MONOCYTES # (AUTO) 0.8 K/uL (0.1-1.30); MONOCYTES % (AUTO) 3.3 % (2.0-12.0); NEUTROPHILS # (AUTO) 20.1 K/uL (1.8-8.9); NEUTROPHILS % (AUTO) 88.2 % (43.0-81.0); PLATELET COUNT (AUTO) 378 K/uL (150-450); RED BLOOD CELL COUNT(AUTO) 2.44 MIL/uL (4.0-5.2); WHITE BLOOD COUNT (AUTO) 22.8 K/uL (4.3-11.0)
--- NOTE | 2022-10-22 06:48 | NUR ---
CASTING FINISHER CLOSING NOTES PATIENT REMAINS IN BED, OBTUNDED. AFEBRILE AND NOT IN ANY FORM OF ACUTE DISTRESS. BREATHING EVEN AND NON LABORED ON SIMPLE MASK AT 8LPM. ON TELE MONITORING WITH CURRENT READING OF SR-ST AT 99. WITH IV ACCESS ON LFA 20G-SL. SAFETY MEASURES IN PLACE. KEPT BED IN LOCKED AND LOW POSITION. SIDE RAILS UP X2. COMFORT MEASURES PROVIDED, ALL DUE MEDS GIVEN, WILL ENDORSE TO AM SHIFT NURSE FOR CONTINUITY OF CARE.
[2022-10-22 06:56] LABS: CALCIUM, SERUM 8.5 mg/dL (8.5-10.1); CARBON DIOXIDE 17 mmol/L (21-32); CHLORIDE 111 mmol/L (98-107); CREATININE 1.5 mg/dL (0.6-1.3); GLUCOSE 134 mg/dL (74-106); POTASSIUM 4.5 mmol/L (3.5-5.1); SODIUM SERUM 143 mmol/L (136-145); UREA NITROGEN, BLOOD 44 mg/dL (7-18)
[2022-10-22] MEDS: LEVOTHYROXINE SODIUM 100 MCG TABLET PO SCH (07:30)
[2022-10-22 08:00] VITALS: BP 116/42
[2022-10-22] MEDS: ASPIRIN 81 MG TAB.CHEW PO SCH (08:03)
[2022-10-22] MEDS: PANTOPRAZOLE 40 MG VIAL IV SCH (08:03)
[2022-10-22] MEDS: CARVEDILOL 3.125 MG TABLET PO SCH ×2 (08:03→21:00)
[2022-10-22] MEDS: PROSTAT (PYXIS) 30 ML UDC PO SCH ×3 (08:04→16:31)
[2022-10-22] MEDS: CHOLECALCIFEROL 1,000 UNIT TABLET (VIT D3) PO SCH (08:04)
[2022-10-22] MEDS: MULTIVIT W/MINERALS 1 TAB TABLET PO SCH (08:04)
[2022-10-22] MEDS: ASCORBIC ACID 500 MG TABLET PO SCH (08:04)
--- NOTE | 2022-10-22 08:04 | NUR ---
Patient is NPO due to confusion and not alert enough to take any PO meds or foods. Per maintenance mechanic 2nd shift endorsement patient will get only the IV medications. All PO medications are held.
[2022-10-22] MEDS ORDERED: FERROUS SULFATE (325 MG) 325 MG/TAB TABLET PO SCH (09:00)
[2022-10-22] MEDS ORDERED: IV D5/ 0.9% NACL 1,000 ML IV PRN (09:30)
--- NOTE | 2022-10-22 11:30 | NUR ---
PATIENT'S BROTHER JEREMIAS REQUESTED TO TALK TO DR. NIEVES REGARDING PUTTING PATIENT ON COMFORT CARE. PATIENT ON COMFORT CARE AFTER DR. NIEVES HAD A CONVERSATION WITH PATIENT'S BROTHER JEREMIAS.
[2022-10-22 12:00] VITALS: BP 116/36
--- NOTE | 2022-10-22 18:51 | NUR ---
RN CLOSING NOTES PATIENT ON NC 8 LITERS, SLEEPING IN HER BED. NO SOB OR DISTRESS NOTED. PATIENT IS ON COMFORT MEASURES ONLY. AND WILL GOING TO BE A HOSPICE PATIENT FROM TOMORROW MORNING. PATIENT KEPT CLEAN AND DRY THROUGHOUT THE SHIFT, NO PO MEDS OR MEALS, BUT ALL DUE IV ANTIBIOTICS GIVEN. WILL ENDORSE THE PATIENT FOR THUAN TO THE CLINICAL RESEARCH SCIENTIST NURSE.
--- NOTE | 2022-10-22 19:30 | NUR ---
MS RN OPENING NOTE RECEIVED PATIENT IN BED, AWAKE, NON VERBAL. DOES NOT FOLLOW COMMANDS. CURRENTLY ON O2 THERAPY VIA NC @ 2LPM, TOLERATING WELL. NO S/SX OF ACUTE RESPI DISTRESS NOTED AT THIS TIME. NO SOB. BREATHING IS EVEN AND UNLABORED. IV ACCESS ON LFA, #20g, PATENT, INTACT AND SL. FC IN PLACE DRAINING URINE BY GRAVITY. ALL SAFETY MEASURES IN PLACE: BED LOCKED IN LOW POSITION. BED ALARM ON. SR UP X 2. CALL LIGHT WITHIN REACH. PT ON COMFORT MEASURES ONLY. WILL CONTINUE TO MONITOR.
[2022-10-22 21:00] VITALS: BP 142/50
[2022-10-22] MEDS: VANCOMYCIN HCL 0.75 GM in IV D5W 250 ML IV SCH (21:00)
[2022-10-23] MEDS: ALBUTEROL FS 2.5 MG/0.5 ML VIAL.NEB NEB SCH ×3 (01:25→11:22)
[2022-10-23] MEDS: IPRATROPIUM NEB FS 0.5 MG/2.5 ML AMPUL.NEB IH SCH ×3 (01:25→11:22)
--- NOTE | 2022-10-23 06:16 | NUR ---
MS RN CLOSING NOTE NO SIGNIFICANT CHANGE T/O THE NIGHT. DUE MEDS GIVEN. NEEDS MET. KEPT PT CLEAN AND DRY. WILL ENDORSE TO AM SHIFT NURSE FOR THUAN.
[2022-10-23] MEDS: LEVOTHYROXINE SODIUM 100 MCG TABLET PO SCH (07:30)
[2022-10-23] MEDS: MULTIVIT W/MINERALS 1 TAB TABLET PO SCH (09:00)
[2022-10-23] MEDS: ASPIRIN 81 MG TAB.CHEW PO SCH (09:00)
[2022-10-23] MEDS: ASCORBIC ACID 500 MG TABLET PO SCH (09:00)
[2022-10-23] MEDS: PROSTAT (PYXIS) 30 ML UDC PO SCH (09:00)
[2022-10-23] MEDS: PANTOPRAZOLE 40 MG VIAL IV SCH (09:00)
[2022-10-23] MEDS: CARVEDILOL 3.125 MG TABLET PO SCH (09:00)
[2022-10-23] MEDS: CHOLECALCIFEROL 1,000 UNIT TABLET (VIT D3) PO SCH (09:00)
[2022-10-23] MEDS: CEFEPIME 2 GM in IV D5W 100 ML IV SCH (09:08)
[2022-10-24] MEDS ORDERED: ERGOCALCIFEROL (VITAMIN D 2) 50,000 UNIT CAPSULE PO SCH (09:00)
== END 2022-10-23 14:57 | disposition hospice, inpatient (51) | DRG 871 ==
LOC: ER 19:31 → TELE1 23:46 → TELE-TD 10-21 01:27 → TELE1 10-21 08:29 → MEDSG1 10-22 16:41
PROVIDERS: ADMIT Student in an Organized Health Care Education/Training Program; ATTEND Student in an Organized Health Care Education/Training Program
DX: A41.9 Sepsis, unspecified organism (principal); G93.41 Metabolic encephalopathy; J15.9 Unspecified bacterial pneumonia; J96.01 Acute respiratory failure with hypoxia; I21.A1 Myocardial infarction type 2; E44.0 Moderate protein-calorie malnutrition; I45.2 Bifascicular block; J91.0 Malignant pleural effusion; R65.20 Severe sepsis without septic shock; D63.8 Anemia in other chronic diseases classified elsewhere; Z66 Do not resuscitate; E03.9 Hypothyroidism, unspecified; E78.5 Hyperlipidemia, unspecified; F09 Unspecified mental disorder due to known physiological condition; D75.839 Thrombocytosis, unspecified; R13.10 Dysphagia, unspecified; I10 Essential (primary) hypertension; E11.9 Type 2 diabetes mellitus without complications; F03.90 Unspecified dementia, unspecified severity, without behavioral disturbance, psychotic disturbance, mood disturbance, and anxiety; D49.9 Neoplasm of unspecified behavior of unspecified site; Z98.890 Other specified postprocedural states; H54.61 Unqualified visual loss, right eye, normal vision left eye; R60.0 Localized edema; R79.89 Other specified abnormal findings of blood chemistry; Z79.02 Long term (current) use of antithrombotics/antiplatelets; Z90.01 Acquired absence of eye; Z79.899 Other long term (current) drug therapy; Z79.890 Hormone replacement therapy; Z20.822 Contact with and (suspected) exposure to COVID-19; Z51.5 Encounter for palliative care
CPT/HCPCS: 36415; 71045-TC; 80048-TC; 80076-TC; 81001; 83605-TC; 83735-TC; 83880; 84100-TC; 84443-TC; 84484-TC; 85025-TC; 85730-TC; 87040-TC; 87081-TC; 87086-TC; 94799-TC; A4223; C9113; C9803; G0378; J0692; J1940; J2270; J3370; J7030; J7050; J7060

== ENCOUNTER 2022-10-23 11:01 | Inpatient (IN) | payer OTHER ==
[~2022-10-23] VITALS: Ht 152.4 cm; Wt 58.5 kg
[~2022-10-23 11:01] MED LIST changes: +ACET-2605 PO; +ACET-868 PO; +AMIN30LI2 PO; -ASCO-352 PO; +BISA10SU11 RC; +CHOL100043 PO; -ERGO500093 PO; +FERR325T24 PO; -IPRA3AMP23 NEB; +MAGN400O6 PO; +NA P133E RC
[2022-10-23 12:00] VITALS: BP 129/68
[2022-10-23] MEDS ORDERED: ACETAMINOPHEN 650 MG SUPP.RECT RC PRN (12:00)
[2022-10-23] MEDS ORDERED: LORAZEPAM INJ 2 MG/ML VIAL IVP PRN (12:00)
--- NOTE | 2022-10-23 12:00 | NUR ---
FACILITY MECHANIC NOTE PER RN BROOM STITCHER LIZBETH WILLETT TO START ON HOSPICE CARE , HOSPICE NURSE AT BEDSIDE NEW ORDER GIVEN , ORDER CARRIED OUT
--- NOTE | 2022-10-23 16:00 | NUR ---
WILMAN IS PATIENT'S BROTHER HE ASKED TO PUT THE PATIENT ON MORPHINE DRIP FOR PATIENT'S COMFORT FROM TOMORROW MORNING, ANANYA NIEVES ALREADY NOTIFIED.
[2022-10-23] MEDS: MORPHINE SULFATE INJ 2 MG/ML DISP.SYRIN IV PRN (16:29)
--- NOTE | 2022-10-23 19:00 | NUR ---
RN CLOSING NOTE PATIENT A/0X0-1 OPEN EYES ONLY, NONVERBAL. ON NC 3 LITERS NO SOB OR DISTRESS NOTED.PATIENT IS ON HOSPICE CARE. PATIENT IS NPO, BUT HAS MORPHINE 1 MG IV Q3 HRS PRN. ALREADY INDORSED THE PATIENT TO THE STOVE TENDER NURSE FOR THUAN.
[2022-10-23 20:00] VITALS: BP 123/69
[2022-10-24 04:00] VITALS: BP 66/69
[2022-10-24] MEDS: MORPHINE SULFATE INJ 2 MG/ML DISP.SYRIN IV PRN ×3 (04:07→09:08)
--- NOTE | 2022-10-24 06:59 | NUR ---
Hospice opening notes Received pts in bed with eyes close , hospice status,v/s stable afebrile ,on oxygen at 4liters via nc no sob no distress noted v/s stable afebrile , with f/c intact and patent draining with yellowish urine output .pts is npo status , son at bedside updated with pts current condition , pts keep comfortable and clean all needs attended too call light within reach will continue to monitor pts. Addendum: 10/24/22 at 6808 by MONA CHUN RN this chart is opening notes
--- NOTE | 2022-10-24 07:10 | NUR ---
hospice open notes Pts remain in bed on 4 liters of o2 via nasal canula ,no sob no distress noted, will provide comfort care
--- NOTE | 2022-10-24 07:25 | NUR ---
hospice closing notes Pts remain in bed on 4 liters of o2 via nasal canula ,no sob no distress noted, will endorse to rn day shift for continuity of care,
[2022-10-24] MEDS ORDERED: MORPHINE SULFATE PF DRIP 250 MG in IV D5W 240 ML IV PRN ×2 (10:00→21:00)
[2022-10-24] MEDS ORDERED: KEY,NONCONTROL,TO KEEP IN PYXI 1 EA MC ONE ×2 (10:42→21:13)
[2022-10-24] MEDS ORDERED: SCOPOLAMINE PATCH 1 MG/72HR TD SCH (14:30)
[2022-10-24] MEDS ORDERED: ATROPINE SULFATE OPHTH SOLN 15 ML BOTTLE SL PRN (14:30)
--- NOTE | 2022-10-24 18:42 | NUR ---
hospice closing notes Pt in bed on 4 liters of o2 via nasal canula ,patient is on morphine drip at 10 ml/hr , it is max dose by doctor order will endorse to manufacturing shift supervisor nurse for continuity of care,
--- NOTE | 2022-10-24 19:15 | NUR ---
DRILL PRESS OPERATOR NOTES RECEIVED LYING ON BED,OBTUNDED,ON COMFORT MEASURES ONLY UNDER HOSPICE CARE.ON MORPHINE DRIP AT 10ML/HR RATE,O2 AT 4L/NC IN USED.ROGERS CATH IN PLACE DRAINS CLEAR YELLOW OUTPUT.WILL MONITOR BREATHING PATTERN.KEPT COMFORTABLE.
[2022-10-24 20:00] VITALS: BP 92/44
--- NOTE | 2022-10-25 06:17 | NUR ---
HOSPICE CARE RN NOTES KEPT COMFORTABLE THRU OUT SHIFT.MORPHINE DRIP AT 10ML/HR RATE.REPOSITION PER PROTOCOL.SUCTION MUCUS ORALLY NEEDED.WILL ENDORSE TO NEXT SHIFT FOR THUAN.
--- NOTE | 2022-10-25 07:12 | NUR ---
FOREST PATHOLOGY ASSOCIATE PROFESSOR NOTES RECEIVED LYING ON BED,OBTUNDED,ON COMFORT MEASURES ONLY UNDER HOSPICE CARE.ON MORPHINE DRIP AT 10ML/HR RATE,O2 AT 4L/NC IN USED.ROGERS CATH IN PLACE DRAINS CLEAR YELLOW OUTPUT.WILL MONITOR BREATHING PATTERN AND TO PROVIDE COMFORT MEASURES CARE.
--- NOTE | 2022-10-25 10:55 | NUR ---
rn note PATIENT IS AT 1066 , CALLED [facility] , SPOKE WITH ALFONSO , REFERENCE NUMBER [id number] TO RELEASE THE BODY .BROTHER AT THE BED SIDE , CALLED MITZI FOY , SPOKE TO THE WHEEL GRINDER , MITZI WILL PICK THE BODY UP WITHIN 2 HR .REMOVED ALL THE IV LINES , REMOVED ROGERS CATHETER , ID TAG PLACED ON THE LEFT FOOT TOE AND ON THE BAG , PATIENT HAD NO BELONGING, CALLED SECURITY FOR BODY PICK IP.
[2022-10-25] MEDS ORDERED: KEY,NONCONTROL,TO KEEP IN PYXI 1 EA MC ONE (10:59)
== END 2022-10-25 10:59 | DRG 871 ==
LOC: HOSPICE1 11:01
PROVIDERS: ADMIT Nurse Practitioner Acute Care; ATTEND Nurse Practitioner Acute Care
DX: A41.9 Sepsis, unspecified organism (principal); G93.41 Metabolic encephalopathy; J96.01 Acute respiratory failure with hypoxia; J15.9 Unspecified bacterial pneumonia; I21.A1 Myocardial infarction type 2; E44.0 Moderate protein-calorie malnutrition; J90 Pleural effusion, not elsewhere classified; Z51.5 Encounter for palliative care; Z66 Do not resuscitate; Z20.822 Contact with and (suspected) exposure to COVID-19; G30.9 Alzheimer's disease, unspecified; F02.80 Dementia in other diseases classified elsewhere, unspecified severity, without behavioral disturbance, psychotic disturbance, mood disturbance, and anxiety; D63.8 Anemia in other chronic diseases classified elsewhere; E78.5 Hyperlipidemia, unspecified; F09 Unspecified mental disorder due to known physiological condition; E03.9 Hypothyroidism, unspecified; Z79.01 Long term (current) use of anticoagulants; Z79.02 Long term (current) use of antithrombotics/antiplatelets; Z79.82 Long term (current) use of aspirin; Z79.899 Other long term (current) drug therapy; Z87.09 Personal history of other diseases of the respiratory system; E11.9 Type 2 diabetes mellitus without complications; D75.839 Thrombocytosis, unspecified; R13.10 Dysphagia, unspecified; Y95 Nosocomial condition; I10 Essential (primary) hypertension; R60.9 Edema, unspecified
CPT/HCPCS: G0378; J2060; J2270; J2274; J7050; J7060